=== PATIENT | male | born 1990 | race Caucasian/White ===

== ENCOUNTER 2019-04-11 11:21 | Day surgery (SDC) | payer OTHER ==
[~2019-04-11] VITALS: Ht 180.3 cm; Wt 101.8 kg
[~2019-04-11 11:21] MED LIST: BUPIVACAINE/PF 0.5% ONE; EPINEPHRINE 1 MG/ML, 1ML ONE
[2019-04-11] MEDS ORDERED: LACTATED RINGERS 1,000 ML IV SCH (11:47)
[2019-04-11 11:58] VITALS: BP 147/96
[2019-04-11] MEDS ORDERED: NO HOME MEDS (11:58)
[2019-04-11] MEDS ORDERED: ACETAMINOPHEN 500 MG TABLET PO ONE (12:00)
[2019-04-11] MEDS ORDERED: PLEASE ENTER ALLERGIES MC SCH (12:00)
[2019-04-11] MEDS ORDERED: DIAZEPAM 5 MG TABLET PO ONE (12:00)
[2019-04-11] MEDS ORDERED: PLEASE ENTER HEIGHT AND WEIGHT MC SCH (12:00)
[2019-04-11] MEDS ORDERED: SCOPOLAMINE PATCH, 1.5MG PATCH.TD72 TD ONE (12:00)
[2019-04-11] MEDS ORDERED: GABAPENTIN 300 MG CAPSULE PO ONE (12:00)
[2019-04-11] MEDS ORDERED: MIDAZOLAM 1 MG/ML, 2ML ONE (12:18)
[2019-04-11] MEDS ORDERED: FENTANYL PF 250 MCG/5ML ONE (12:19)
[2019-04-11] MEDS ORDERED: CEFAZOLIN 1,000 MG ONE (13:28)
[2019-04-11] MEDS ORDERED: ROCURONIUM 10MG/ML,5ML ONE (14:01)
[2019-04-11] MEDS ORDERED: SUGAMMADEX 200 MG/2 ML IVPush ONE (14:01)
[2019-04-11] MEDS ORDERED: PROPOFOL 10 MG/ML, 20ML ONE (14:01)
[2019-04-11] MEDS ORDERED: SUCCINYLCHOLINE 20 MG/ML, 10ML ONE (14:01)
[2019-04-11] MEDS ORDERED: DEXAMETHASONE 4 MG/ML, 1ML ONE ×2 (14:01)
[2019-04-11] MEDS ORDERED: ONDANSETRON 2MG/ML, 2ML ONE ×2 (14:01)
[2019-04-11] MEDS ORDERED: DIAZEPAM 5 MG/ML, 2ML IVPush PRN (14:30)
[2019-04-11] MEDS ORDERED: HYDROmorphone 1 MG/ML, 1ML INJ IVPush PRN (14:30)
[2019-04-11] MEDS ORDERED: FENTANYL PF 100 MCG/2ML IV PRN (14:30)
[2019-04-11] MEDS ORDERED: MIDAZOLAM 1 MG/ML, 2ML IV PRN (14:30)
[2019-04-11] MEDS ORDERED: ALBUTEROL SULFATE 2.5 MG/3 ML NPPB PRN (14:30)
[2019-04-11] MEDS ORDERED: ONDANSETRON 2MG/ML, 2ML IV PRN (14:30)
[2019-04-11] MEDS ORDERED: PROMETHAZINE 25 MG/ML, 1ML IV PRN (14:30)
[2019-04-11] MEDS ORDERED: PROMETHAZINE 12.5 MG SUPP PR PRN (14:30)
[2019-04-11] MEDS ORDERED: OXYcodone 5 MG/5 ML ORAL.SOL UDC PO PRN (14:30)
[2019-04-11] MEDS ORDERED: hydrALAzine 20 MG/ML, 1ML IV PRN (14:30)
[2019-04-11] MEDS ORDERED: MEPERIDINE/PF 25MG/ML,1ML IVPush PRN (14:30)
[2019-04-11] MEDS ORDERED: ONDANSETRON ODT 8 MG PO PRN (14:30)
[2019-04-11] MEDS ORDERED: EPHEDRINE 50 MG/ML, 1ML IVPush PRN (14:30)
[2019-04-11] MEDS ORDERED: LABETALOL 5MG/ML, 20ML IV PRN (14:30)
[2019-04-11] MEDS ORDERED: OXYcodone 5 MG/5 ML ORAL.SOL UDC ONE (14:41)
== END 2019-04-11 17:10 | disposition home or self-care (01) ==
LOC: OUT 11:21
PROVIDERS: ATTEND Surgery
DX: K42.0 Umbilical hernia with obstruction, without gangrene (principal); F19.90 Other psychoactive substance use, unspecified, uncomplicated; Z72.89 Other problems related to lifestyle
CPT/HCPCS: 49587; C1781; J0171; J0330; J0690; J1100; J2250; J2405; J2704; J3010; J7120